=== PATIENT | male | born 1975 | race Native Hawaiian/Other Pacific Islander ===

== ENCOUNTER 2019-12-09 09:15 | Outpatient (CLI) | payer OTHER ==
--- NOTE | 2019-12-09 10:26 | XRay Report ---
XR spine lumbosacral 4+V HISTORY: BACK PAIN COMPARISON: None. TECHNIQUE: 7 view(s) of the lumbar spine obtained. FINDINGS: Vertebrae: Normal alignment. Vertebral body heights are preserved. Spondylosis:Disc space heights are preserved. Additional findings: 8 mm calcification in the area of the left renal pelvis. IMPRESSION: 1. No significant abnormality of the lumbar spine. 2. 8 mm calcification in the area of the left renal pelvis could be related to a renal stone. Signer Name: Saleem Sparrow MD Signed: 12/09/2019 10:21 AM Workstation Name: [id number]
[2019-12-09 10:39] LABS: Basophils % (Auto) 0.8 % (0.0-1.8); Eosinophils # (Auto) 0.1 K/mm3 (0.0-0.4); Eosinophils % (Auto) 2.6 % (0.0-4.3); Hematocrit 48.4 % (35.5-45.6); Hemoglobin 16.8 gm/dl (11.8-15.2); Lymphocytes # (Auto) 1.6 K/mm3 (1.2-5.4); Lymphocytes % (Auto) 27.8 % (13.4-35.0); Mean Corpuscular HGB Conc 35 % (32-34); Mean Corpuscular Volume 92 fl (84-94); Monocytes # (Auto) 0.4 K/mm3 (0.0-0.8); Monocytes % (Auto) 7.7 % (0.0-7.3); Platelet Count 251 K/mm3 (140-440); Red Blood Count 5.25 M/mm3 (3.65-5.03); Red Cell Distribution Width 12.8 % (13.2-15.2)
[2019-12-09 11:03] LABS: Erythrocyte Sedimentation Rate 7 mm/Hr (0-20)
[2019-12-09 11:04] LABS: Alanine Aminotransferase 55 units/L (7-56); Albumin 4.5 g/dL (3.9-5); BUN/Creatinine Ratio 16; Blood Urea Nitrogen 13 mg/dL (9-20); Calcium 9.1 mg/dL (8.4-10.2); Chol/HDL Ratio 4.56 %; HDL Cholesterol 32 mg/dL (40-59); Hemolysis Index 5; LDL Cholesterol,Direct 90 mg/dL (50-130)
== END 2019-12-09 09:16 | disposition home or self-care (01) ==
LOC: LAB 09:15
PROVIDERS: ATTEND Internal Medicine
DX: Z00.00 Encounter for general adult medical examination without abnormal findings (principal); N20.0 Calculus of kidney; Z13.220 Encounter for screening for lipoid disorders; E56.9 Vitamin deficiency, unspecified; M13.0 Polyarthritis, unspecified; M33.10 Other dermatomyositis, organ involvement unspecified; Z13.29 Encounter for screening for other suspected endocrine disorder
CPT/HCPCS: 36415; 72110; 80053; 80061; 82306; 82607; 84443; 85025; 85652

== ENCOUNTER 2020-07-15 17:22 | Emergency (ER) | payer SELFPAY ==
[2020-07-15] MEDS ORDERED: TETANUS,DIPH,PERTUSS(ACELL) VACCINE 0.5 ML SYRINGE IM ONE ×2 (19:36→23:30)
--- NOTE | 2020-07-15 19:38 | Event Note ---
ED Screening Note ED Screening Note: Peruvian interpretation by security Quan guard Laceration to the left hand that occurred just prior to arrival He was using a large sharp knife to cut meat He is able to move the hand no numbness or weakness Large laceration to the palmar surface of the left hand Unsure of Tdap This initial assessment/diagnostic orders/clinical plan/treatment(s) is/are subject to change based on patients health status, clinical progression and re- assessment by fellow clinical providers in the ED. Further treatment and workup at subsequent clinical providers discretion. Patient/guardian urged not to elope from the ED as their condition may be serious if not clinically assessed and managed. Initial orders include: X-ray
[2020-07-15 19:45] VITALS: BP 120/84
--- NOTE | 2020-07-15 20:20 | XRay Report ---
LEFT HAND 3 VIEWS INDICATION: large lac palm side base of thumb....cutting with knife while slicing . COMPARISON: No relevant prior imaging study available. FINDINGS: There is soft tissue injury along the radial aspect of the wrist near the base of the thumb metacarpa l. Linear density projecting adjacent to the right thumb is likely outside the patient. No soft tissu e foreign bodies are seen. No acute fracture is identified. IMPRESSION: 1. Laceration injury. No underlying fracture. Signer Name: Filippo Swanson MD Signed: 07/15/2020 8:15 PM Workstation Name: [id number]
--- NOTE | 2020-07-15 23:28 | Emergency Department Report ---
ED Upper Extremity Inj HPI - General Chief Complaint: Wound/Laceration Stated Complaint: LEFT HAND LACERATION Time Seen by Provider: 07/15/20 21:29 Source: patient Mode of arrival: Ambulatory Limitations: Language Barrier - Related Data Previous Rx's Medication Instructions Recorded Last Taken Type Ciprofloxacin (Nf) [Ciprofloxacin 1 - 2 drop OS Q2HR #1 bottle 04/11/14 Unknown Rx HCl 0.3%] HYDROcodone/APAP 5-325 [[place] 1 each PO Q6HR PRN #12 tablet 04/11/14 Unknown Rx 5/325] Ibuprofen [Motrin 800 MG tab] 800 mg PO Q8H PRN #30 tablet 04/11/14 Unknown Rx Chlorhexidine Gluconate [Hibiclens] 15 ml TP BID #240 liquid 07/15/20 Unknown Rx Sulfamethoxazole/Trimethoprim 1 each PO BID #20 tablet 07/15/20 Unknown Rx [Bactrim DS TAB] Allergies Allergy/AdvReac Type Severity Reaction Status Date / Time Penicillins Allergy Rash Verified 04/11/14 18:28 ED Review of Systems ROS: Stated complaint: LEFT HAND LACERATION Other details as noted in HPI Comment: All other systems reviewed and negative ED Past Medical Hx - Past Medical History Previous Medical History?: No - Surgical History Past Surgical History?: No - Social History Smoking Status: Never Smoker Substance Use Type: None - Medications Home Medications: Home Medications Medication Instructions Recorded Confirmed Last Taken Type Ciprofloxacin (Nf) [Ciprofloxacin 1 - 2 drop OS Q2HR #1 bottle 04/11/14 Unknown Rx HCl 0.3%] HYDROcodone/APAP 5-325 [[place] 1 each PO Q6HR PRN #12 tablet 04/11/14 Unknown Rx 5/325] Ibuprofen [Motrin 800 MG tab] 800 mg PO Q8H PRN #30 tablet 04/11/14 Unknown Rx Chlorhexidine Gluconate [Hibiclens] 15 ml TP BID #240 liquid 07/15/20 Unknown Rx Sulfamethoxazole/Trimethoprim 1 each PO BID #20 tablet 07/15/20 Unknown Rx [Bactrim DS TAB] ED Physical Exam - General Limitations: Language Barrier General appearance: alert, in no apparent distress - Head Head exam: Present: atraumatic, normocephalic - Eye Eye exam: Present: normal appearance, PERRL, EOMI - ENT ENT exam: Present: normal exam, mucous membranes moist - Neck Neck exam: Present: normal inspection, full ROM - Respiratory Respiratory exam: Present: normal lung sounds bilaterally. Absent: respiratory distress - Cardiovascular Cardiovascular Exam: Present: regular rate, normal rhythm. Absent: systolic murmur, diastolic murmur, rubs, gallop - GI/Abdominal GI/Abdominal exam: Present: soft, normal bowel sounds - Rectal Rectal exam: Present: deferred - Extremities Exam Extremities exam: Present: normal inspection - Expanded Upper Extremity Exam Left Hand Wrist exam: Present: tenderness, laceration. Absent: ecchymosis, deformity, amputation, nail avulsion, subungual hematoma Hand L/R Front: 1 - Positive: laceration. Negative: abrasion, nail injury (#), foreign body, amputation, avulsion - Back Exam Back exam: Present: normal inspection - Neurological Exam Neurological exam: Present: alert, oriented X3 - Psychiatric Psychiatric exam: Present: normal affect, normal mood - Skin Skin exam: Present: warm, dry, intact, normal color. Absent: rash ED Course Vital Signs 07/15/20 19:39 Temperature 98.2 F Pulse Rate 75 Respiratory 16 Rate Blood Pressure 120/84 O2 Sat by Pulse 100 Oximetry - Laceration /Wound Repair Left Hand Wound Location: upper extremity Wound Length (cm): 6 Wound's Depth, Shape: into muscle, linear Wound Explored: clean Irrigated w/ Saline (ccs): 50 Anesthesia: 1% Lidocaine Volume Anesthetic (ccs): 6 Wound Repaired With: sutures Suture Size/Type: 3:0, proline Number of Sutures: 8 Layer Closure?: Yes Deep Layer Suture Size/Type: 3:0 Number Deep Layer Sutures: 2 Sterile Dressing Applied?: Yes ED Medical Decision Making - Radiology Data Radiology results: report reviewed [facility] [address] [place] [address] XRay Report Signed Patient: CHANTAL CUMMINGS MR#: [id number] : 1975 Acct:[id number] Age/Sex: 45 / M ADM Date: 07/15/20 Loc: ED Attending Dr: Ordering Physician: DRU CONDE Date of Service: 07/15/20 Procedure(s): XR hand 3+V LT Accession Number(s): [id number] cc: DRU CONDE Fluoro Time In Minutes: LEFT HAND 3 VIEWS INDICATION: large lac palm side base of thumb....cutting with knife while slicing . COMPARISON: No relevant prior imaging study available. FINDINGS: There is soft tissue injury along the radial aspect of the wrist near the base of the thumb metacarpal. Linear density projecting adjacent to the right thumb is likely outside the patient. No soft tissue foreign bodies are seen. No acute fracture is identified. IMPRESSION: 1. Laceration injury. No underlying fracture. Signer Name: Filippo Swanson MD Signed: 07/15/2020 8:15 PM Workstation Name: [id number] Transcribed By: RITA Dictated By: Filippo Swanson MD Electronically Authenticated By: Filippo Swanson MD Signed Date/Time: 07/15/202014 DD/ 13 TD/TT: Print Cancel Critical care attestation.: If time is entered above; I have spent that time in minutes in the direct care of this critically ill patient, excluding procedure time. ED Disposition Clinical Impression: Hand laceration Disposition: DC-01 TO HOME OR SELFCARE Is pt being admited?: No Does the pt Need Aspirin: No Condition: Stable Instructions: Laceration Care, Adult, Sutured Wound Care Prescriptions: Sulfamethoxazole/Trimethoprim [Bactrim DS TAB] 1 each PO BID #20 tablet Chlorhexidine Gluconate [Hibiclens] 15 ml TP BID #240 liquid Referrals: [facility] [Provider Group] - 3-5 Days
== END 2020-07-15 23:58 | disposition home or self-care (01) ==
LOC: ED 17:22
DX: S61.412A Laceration without foreign body of left hand, initial encounter (principal); Z88.0 Allergy status to penicillin; Z79.899 Other long term (current) drug therapy; X58.XXXA Exposure to other specified factors, initial encounter; Y93.89 Activity, other specified; Y92.89 Other specified places as the place of occurrence of the external cause; Y99.8 Other external cause status
CPT/HCPCS: 90471; 90715; 99283